=== PATIENT | male | born 1975 | race Two or more races ===

== ENCOUNTER 2019-08-28 00:15 | Emergency (ER) | payer MEDICAID ==
[~2019-08-28] VITALS: Ht 165.1 cm; Wt 59.0 kg
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
--- NOTE | 2019-08-28 01:07 | NUR ---
XRAY AT BEDSIDE
--- NOTE | 2019-08-28 01:29 | NUR ---
PATIENT REFUSED PAIN MEDICATION AT THIS TIME.
[2019-08-28] MEDS ORDERED: HYDROCODONE/APAP 5/325MG 1 EACH TABLET PO ONE (01:30)
--- NOTE | 2019-08-28 02:14 | NUR ---
BETY WRAP, KNEE IMMOBILIZER APPLIED TO LEFT KNEE.
--- NOTE | 2019-08-28 02:24 | NUR ---
PRESCRIPTIONS GIVEN AND EXPLAINED TO PATIENT AND SISTER
--- NOTE | 2019-08-28 02:25 | NUR ---
Patient walks with steady gait w/ crutches. Patient discharged to home in stable condition. Written and verbal after care instructions given. Patient verbalizes understanding of instruction.
[2019-08-28 02:26] VITALS: BP 131/72
== END 2019-08-28 02:27 | disposition home or self-care (01) ==
LOC: ER 00:17
DX: S83.422A Sprain of lateral collateral ligament of left knee, initial encounter (principal); Z60.2 Problems related to living alone; V03.99XA Pedestrian with other conveyance injured in collision with car, pick-up truck or van, unspecified whether traffic or nontraffic accident, initial encounter; Y93.89 Activity, other specified; Y92.89 Other specified places as the place of occurrence of the external cause; Y99.8 Other external cause status
CPT/HCPCS: 73564-TC